=== PATIENT | male | born 1980 | race Caucasian/White ===

== ENCOUNTER 2016-11-13 11:59 | Emergency (ER) | payer OTHER ==
[2016-11-13 12:44] LABS: BASOPHIL 0.2 % (0-2); EOSINOPHIL 0 % (0-5); HCT 45.2 % (42.0-52.0); HGB 16.3 g/dl (13.2-18.0); LYMPHOCYTE 11.3 % (15-48); MCH 32.4 pg (25.0-31.0); MCHC 36.1 g/dL (32.0-36.0); MCV 89.9 fL (78.0-100.0); MONOCYTE 6.4 % (0-12); MPV 9.8 fL (6.0-9.5); NEUTROPHIL 82.1 % (41-80); PLT 222 K/uL (150-400); RBC 5.03 M/uL (4.70-6.00); RDW 13.7 % (11.5-14.0); WBC 13.1 K/uL (4.0-10.5)
[2016-11-13 13:20] LABS: ALBUMIN 4.4 g/dL (3.5-5.0); BILIRUBIN - TOTAL 0.7 mg/dL (0.1-1.0); CREATININE 0.8 mg/dL (0.7-1.2); GLOBULIN (CALCULATION) 3.1 g/dL (2.2-4.2); TOTAL PROTEIN 7.5 g/dL (6.4-8.3)
[2016-11-13 13:41] LABS: BILIRUBIN NEGATIVE (NEGATIVE); BLOOD TRACE-INTACT Ery/uL (NEGATIVE); CLARITY CLEAR (CLEAR); COLOR YELLOW (YELLOW); GLUCOSE (U) NORMAL (NORMAL); KETONE (U) 1+ (SMALL) mg/dL (NEGATIVE); LEUKOCYTES NEGATIVE Leu/uL (NEGATIVE); NITRITE NEGATIVE (NEGATIVE); PROTEIN 2+ mg/dL (NEGATIVE); SPECIFIC GRAVITY 1.025 (1.001-1.030); UROBILINOGEN 0.2 mg/dL (0.2-1.0)
[2016-11-13 13:43] LABS: URINARY WBC RARE
[2016-11-13 13:44] LABS: MUCOUS TRACE; SQUAMOUS EPITHELIAL CELLS RARE; URINARY RBC RARE
[2016-11-13 13:47] LABS: AMPHETAMINES POSITIVE (NEGATIVE); BARBITURATES NEGATIVE (NEGATIVE); BENZODIAZEPINES NEGATIVE (NEGATIVE); COCAINE NEGATIVE (NEGATIVE); MARIJUANA (THC) POSITIVE (NEGATIVE); METHADONE NEGATIVE (NEGATIVE); TRICYCLIC ANTIDEPRESSANT NEGATIVE (NEGATIVE)
== END 2016-11-13 13:45 | disposition other institution (70) ==
LOC: FER 11:59
PROVIDERS: Emergency Medicine
DX: S05.91XA Unspecified injury of right eye and orbit, initial encounter (principal); H54.61 Unqualified visual loss, right eye, normal vision left eye; R07.1 Chest pain on breathing; F17.200 Nicotine dependence, unspecified, uncomplicated; Z23 Encounter for immunization; Y04.2XXA Assault by strike against or bumped into by another person, initial encounter
CPT/HCPCS: 36415; 70450; 70486; 71010; 72125; 80053; 80305; 81001; 85025; 90471; 90715; G0480

== ENCOUNTER 2016-11-13 21:37 | Emergency (ER) | payer OTHER | END 2016-11-13 22:49 | disposition home or self-care (01) | LOC: FER 21:37 | DX: S16.1XXA Strain of muscle, fascia and tendon at neck level, initial encounter (principal); H11.33 Conjunctival hemorrhage, bilateral; R11.2 Nausea with vomiting, unspecified; K22.70 Barrett's esophagus without dysplasia; F17.210 Nicotine dependence, cigarettes, uncomplicated; Y09 Assault by unspecified means | CPT/HCPCS: 70360; J1100 ==

== ENCOUNTER 2020-11-01 17:42 | Emergency (ER) | payer OTHER ==
[~2020-11-01 17:42] MED LIST: AUGMENTIN 875-1 EACH PO; CELEBREX **OUT100 MG PO; DICLOFENAC SODI75 MG PO; FIORICET1 EACH PO; IBUPROFEN800 MG PO; IMITREX50 MG PO; MEDROL 4MG DOSEP4 MG PO; NAPROXEN500 MG PO; ONDANSETRON ODT4 MG SL; PERCOCET 5-3251 EACH PO; PERCOCET 7.5/321 TAB PO; PHENERGAN25 M1 PO; TRAMADOL HCL50 MG PO; ULTRAM50 MG PO; VIBRAMYCIN100 MG PO; VOLTAREN **OUT50 MG PO
[2020-11-01] MEDS ORDERED: HYDROCODON-ACE1 EAC2 PO (19:23)
== END 2020-11-01 19:53 | disposition home or self-care (01) ==
LOC: FER 17:42
DX: G89.18 Other acute postprocedural pain (principal); M79.604 Pain in right leg; F17.200 Nicotine dependence, unspecified, uncomplicated; Z87.81 Personal history of (healed) traumatic fracture
CPT/HCPCS: 99283; J1885

== ENCOUNTER 2020-12-26 23:22 | Emergency (ER) | payer OTHER ==
[~2020-12-26 23:22] MED LIST changes: +HYDROCODON-ACE1 EAC2 PO
[2020-12-27] MEDS ORDERED: DICLOFENAC SODI75 MG PO (01:39)
== END 2020-12-27 01:15 | disposition home or self-care (01) ==
LOC: FER 23:22
DX: M25.561 Pain in right knee (principal); F17.210 Nicotine dependence, cigarettes, uncomplicated; Z91.19 Patient's noncompliance with other medical treatment and regimen; Z87.820 Personal history of traumatic brain injury
CPT/HCPCS: 73564; J1885

== ENCOUNTER 2021-03-16 23:21 | Emergency (ER) | payer OTHER ==
[2021-03-16] MEDS ORDERED: MOBIC15 MG PO (23:56)
== END 2021-03-17 00:10 | disposition home or self-care (01) ==
LOC: FER 23:21
DX: G89.29 Other chronic pain (principal); M25.561 Pain in right knee
CPT/HCPCS: 73560

== ENCOUNTER 2021-03-26 19:19 | Emergency (ER) | payer OTHER ==
[~2021-03-26 19:19] MED LIST changes: +MOBIC15 MG PO
== END 2021-03-26 22:32 | disposition left against medical advice (07) ==
LOC: FER 19:19
DX: G43.909 Migraine, unspecified, not intractable, without status migrainosus (principal); M25.561 Pain in right knee; F17.210 Nicotine dependence, cigarettes, uncomplicated; Z53.8 Procedure and treatment not carried out for other reasons
CPT/HCPCS: 99283; J1100; J3030

== ENCOUNTER → 2021-09-30 18:34 | Emergency (ER) | payer OTHER ==
[2021-09-30 21:04] LABS: ECSTASY (MDMA) POSITIVE (NEGATIVE); MARIJUANA (THC) POSITIVE (NEGATIVE); METHADONE NEGATIVE (NEGATIVE)
[2021-09-30 21:05] LABS: AMPHETAMINES POSITIVE (NEGATIVE); BARBITURATES NEGATIVE (NEGATIVE); OPIATES NEGATIVE (NEGATIVE); OXYCODONE NEGATIVE (NEGATIVE)
== END | disposition home or self-care (01) ==
LOC: FER 18:34
PROVIDERS: Emergency Medicine
DX: F41.9 Anxiety disorder, unspecified (principal); T43.625A Adverse effect of amphetamines, initial encounter; F17.200 Nicotine dependence, unspecified, uncomplicated; Z28.310 Unvaccinated for COVID-19
CPT/HCPCS: 80305; J1790; J1885

== ENCOUNTER 2021-10-15 03:02 | Emergency (ER) | payer OTHER | END 2021-10-15 03:59 | disposition home or self-care (01) | LOC: FER 03:02 | DX: S50.11XA Contusion of right forearm, initial encounter (principal); M25.531 Pain in right wrist; F17.200 Nicotine dependence, unspecified, uncomplicated; Z28.310 Unvaccinated for COVID-19; W19.XXXA Unspecified fall, initial encounter | CPT/HCPCS: 73090 ==

== ENCOUNTER 2021-12-17 23:09 | Emergency (ER) | payer OTHER ==
[2021-12-18] MEDS ORDERED: NAPROXEN500 MG PO (01:32)
[2021-12-18] MEDS ORDERED: ROBAXIN750 MG PO (01:32)
== END 2021-12-18 01:59 | disposition home or self-care (01) ==
LOC: FER 23:09
DX: S20.224A Contusion of middle back wall of thorax, initial encounter (principal); Z28.310 Unvaccinated for COVID-19; W19.XXXA Unspecified fall, initial encounter; Y92.009 Unspecified place in unspecified non-institutional (private) residence as the place of occurrence of the external cause
CPT/HCPCS: 72128